=== PATIENT | female | born 1995 | race Caucasian/White ===

== ENCOUNTER 2024-11-23 23:43 | Emergency (ER) | payer OTHER ==
[~2024-11-23] VITALS: Ht 170.2 cm; Wt 111.9 kg
--- OUTSIDE RECORDS SUMMARY | 2024-11-24 00:24 | XMS ---
PreManage Notification: KEYLA COLUNGA Security Cash Teller Events No recent Security Events currently on file CRITERIA MET - [facility] - 2 Visits in 30 Days CARE PROVIDERS -, [facility] Dentist: Industrial Safety And Health Manager Current [place] PHONE: [phone] -[place]- Dentist: Industrial Safety And Health Manager Current [facility] PHONE: [phone] [facility], [facility] Family [facility] PHONE: [phone] Care Guidelines exist for the following facilities: [facility] ( 02/01/2019 ) Jory VISIT COUNT (12 MO.) [address] [place] [address] KARISHMA Betts TOTAL 6 NOTE: Visits indicate total known visits. ED/UCC VISIT TRACKING (12 MO.) 11/23/2024 23:45 [facility] [place] TYPE: Emergency COMPLAINT: - ANKLE INJURY 11/18/2024 15:21 [facility] [employer] [place] TYPE: Emergency DIAGNOSES: - Pain in left ankle and joints of left foot - LEFT ANKLE INJURY 10/02/2024 10:54 [facility] [employer] [place] TYPE: Emergency DIAGNOSES: - Streptococcal pharyngitis - SWOLLEN UVULA 05/21/2024 20:44 [facility] [employer] [place] TYPE: Emergency DIAGNOSES: - Low back pain, unspecified - Migraine, unspecified, intractable, without status migrainosus - PELVIC PAIN 04/10/2024 18:41 [facility] [place] TYPE: Emergency DIAGNOSES: - Headache, unspecified - Migraine 02/01/2024 18:06 [facility] [place] TYPE: Emergency DIAGNOSES: - Radiculopathy, lumbar region - BACK PAIN; LEG NUMBNESS INPATIENT VISIT TRACKING (12 MO.) No inpatient visits to display in this time frame [email or web address]
[2024-11-24 02:20] VITALS: BP 127/91
== END 2024-11-24 02:20 | disposition home or self-care (01) ==
LOC: ED 23:43
DX: S93.402A Sprain of unspecified ligament of left ankle, initial encounter (principal); W01.0XXA Fall on same level from slipping, tripping and stumbling without subsequent striking against object, initial encounter; Z91.038 Other insect allergy status; Z79.899 Other long term (current) drug therapy
CPT/HCPCS: 73610; 99283